=== PATIENT | male | born 1975 | race Caucasian/White ===

== ENCOUNTER 2018-10-22 00:28 | Inpatient (IN) | payer OTHER ==
[2018-10-22] VITALS (7 sets, daily range): BP systolic 111–135; BP diastolic 63–82
[~2018-10-22] VITALS: Ht 185.4 cm; Wt 101.2 kg
--- NOTE | ~2018-10-22 | HC ---
[facility] [address] [place] [address] CONSULTATION Name: TOSHIAEVA Oly Room #: 212-P [facility] IN ..#: [id number] Admission: 10/22/18 ������������������ Attend Phys: Juan Baumann Discharge: 10/23/18 ������������������ Date of : 73 Report #: [id number] THIS REPORT FOR: //name// CC: Aryan Baumann DATE OF SERVICE: 10/23/2018 SURGICAL CONSULTATION REASON FOR CONSULTATION: Acute cholecystitis. HISTORY OF PRESENT ILLNESS: The patient is a 43-year-old who was admitted last night through the Emergency Room with acute onset of epigastric pain. I received a call from Dr. Lira this morning that the patient was felt to have gallbladder disease rather than a heart condition. The patient complained of pain in the epigastrium that went through to his back about 9:00 last night. The patient ate about 8:30. The patient's pain continued, felt pretty nauseated, bloated. Did not vomit. The patient came to the Emergency Room. Did have a CT performed. The CT showed some thickening of the gallbladder. No PE, no aortic dissection. The patient did have a mild elevated troponin of 0.12. He had an echo, which was unremarkable. The patient underwent an ultrasound today, which showed multiple stones, wall thickening and somewhat decompressed gallbladder. The patient did say that about a few weeks ago, he had an episode of pain that lasted for about 30 minutes. There is family history of gallbladder disease in sister. PHYSICAL EXAMINATION: GENERAL: The patient is alert and oriented, not in acute distress. ABDOMEN: Soft, nondistended. Mildly tender in the right upper quadrant, but no guarding or rigidity. No mass. LABORATORY DATA: His white count is normal. Liver function is normal. CT and ultrasound was reviewed. Ultrasound was reviewed with Dr. Cortez who read the ultrasound consistent with acute cholecystitis. IMPRESSION: The patient is a 43-year-old with abdominal pain, which is fairly classic in location for gallbladder disease. He does have gallstones and his gallbladder does look inflamed on ultrasound. On exam, he is not as tender as I would expect, but mildly tender. I thought that perhaps, he has a subacute cholecystitis. The patient is recommended to undergo treatment with laparoscopic cholecystectomy. The patient has a trip coming up for his anniversary. He is leaving town next Friday. I am not sure at this point that he should go. This was discussed with the patient. The procedure was discussed, and risk of common duct injury, bleeding, infection was discussed. I [address] [address] CONSULTATION Name: TOSHIAEVA Room #: 212-P [facility] IN M.R.#: [id number] Admission: 10/22/18 ������������������ Attend Phys: Juan Baumann Discharge: 10/23/18 ������������������ Date of : 73 Report #: [id number] did tell him that we can see how he does postoperatively and if he is doing well, then there is a chance that he may be able to make the trip. Hypercoagulable period of time after surgery was discussed, possibly have him take some aspirin for his trip. ��������������������������������������������� ���������������������������������������� By: ��������������������������������������������� 1334 0130 Joseph Hull MD /nt
--- NOTE | ~2018-10-22 | O ---
[facility] [address] [place] [address] OPERATIVE REPORT Name: TOSHIAEVA Room #: 212-P [facility] IN M.R.#: [id number] Admission: 10/22/18 ������������������ Attend Phys: Juan Baumann Discharge: 10/23/18 ������������������ Date of : 73 Report #: [id number] THIS REPORT FOR: //name// CC: Aryan Baumann DATE OF SERVICE: 10/22/2018 PREOPERATIVE DIAGNOSES: Acute cholecystitis with cholelithiasis. POSTOPERATIVE DIAGNOSES: Acute cholecystitis with cholelithiasis. Large stone impacted in the gallbladder of neck. PROCEDURE: Laparoscopic cholecystectomy with cholangiogram. SURGEON: Joseph Hull M.D. ANESTHESIA: General anesthesia. COMPLICATIONS: None. ESTIMATED BLOOD LOSS: 30 mL. PROCEDURE NOTE: With the patient under anesthesia, IV antibiotic of Ancef 2 grams was given. Abdomen was prepped and draped in sterile fashion. Timeout was performed. A 0.25% Marcaine was used to anesthetize the skin infraumbilically. Curvilinear incision was made infraumbilically. Fascia was identified. The fascia just below the umbilicus was opened under visualization between clamps. 0 Vicryl suture was placed on the fascia for retraction. With the abdominal wall lifted anteriorly, Veress needle was then placed through the peritoneum. Abdominal cavity was insufflated with CO2. After creating pneumoperitoneum, a pressure of 15, 11 mm trocar was placed. This was placed into the pneumoperitoneum without difficulty. Laparoscopic evaluation showed a normal liver. The gallbladder is inflamed and intense. The colon did have increased gas and stool build up. Small bowel also was mild to moderately distended consistent with ileus. Two 5 mm trocars were placed in the right upper quadrant and another 5 mm trocar was placed in the right epigastrium. The gallbladder was decompressed with an aspirating needle. About 20 mL was drawn out of it. A grasper was placed on the fundus of the gallbladder. The gallbladder was lifted cephalad. There is some adhesion lateral to the gallbladder along the liver. This fatty adhesions probably chronic due to inflammation of the gallbladder. Adhesions were taken down. Proximal part of the gallbladder was identified. A large stone was palpated at the neck of the gallbladder. The gallbladder was also noted to be quite edematous. The fat that is just proximal to the neck of the gallbladder was dissected free. The [address] [address] OPERATIVE REPORT Name: EVA POPE Room #: 212-P [facility] IN ..#: [id number] Admission: 10/22/18 ������������������ Attend Phys: Juan Baumann Discharge: 10/23/18 ������������������ Date of : 73 Report #: [id number] cystic duct was isolated. The cystic duct was normal size. Clip was placed in junction of cystic duct to the gallbladder. An opening was made in the cystic duct. Cholangiogram catheter was inserted. Fluoroscopic cholangiogram was obtained. The cholangiogram catheter identified in the cystic duct. No harm to the common duct. There was a question of a filling defect in the common duct, but it did not move like a stone would. I believe this was probably representing overlapping gas. The bile duct filled out well and dye was seen to empty into the duodenum. The cystic duct was normal size. The patient has large gallstones. I do think the patient has a common duct stone. Dr. Arteaga also reviewed the cholangiogram with me and Dr. Arteaga called into the room and reviewed the cholangiogram with me. He did not believe that the patient had a stone in the duct either. The cholangiogram catheter was then removed. The proximal cystic duct was then clipped x 2 and then divided. The cystic artery was then found. Prior to finding the cystic artery, there were few twigs, strands of tissue that was clipped and divided. Either representing small vein or arterial branch, not the main artery. The main artery was then found. The artery was isolated right as it bifurcated. The artery was clipped x 2 proximally and 1 distally, then divided. The gallbladder was then divided from the liver bed. The wall of the gallbladder was quite edematous. Gallbladder was freed without difficulty. It was difficult to free the gallbladder with cautery because of the edema in the wall. The gallbladder, once it was freed, it was placed in a specimen bag. The bag was partially removed through the infraumbilical port. CO2 was then administered through one of the 5 mm trocar. The fascia opening was enlarged about another 4-5 mm. The part of the gallbladder was then able to be seen through to be outside of the wall. The gallbladder was then grasped. The gallbladder was opened, further decompressed. Clamps were placed on the gallbladder. An Allis clamp was then used to extract the stones. Once I removed part of the stone, the gallbladder then came out little by little. Then, the entire gallbladder within the bag came out. There was a large stone stuck in the gallbladder neck. The stones were pretty fragile and did break up. Liver bed was checked, hemostasis was excellent. Clips were intact. No bleeding was identified. Irrigation was performed. Irrigation was aspirated out. No bleeding was identified. CO2 was then released as much as possible. Trocars then removed. The fascia defect infraumbilically was then closed with [id number] 0 Vicryl x 2 and then a single interrupted 0 Vicryl. Skin was irrigated. Skin was closed with 5-0 PDS. Steri-Strip, Band-Aids applied. The patient tolerated the procedure well and was taken to the recovery room. ��������������������������������������������� ���������������������������������������� By: ��������������������������������������������� 1329 1707 Joseph Hull MD /nt
[2018-10-22 01:06] LABS: ABSOLUTE NEUTROPHILS 6.8 thou/uL (1.4-8.2); BASOPHILS 0.3 % (0.0-2.0); EOSINOPHILS 1.4 % (0.0-3.0); HEMATOCRIT 44.9 % (42.0-52.0); HEMOGLOBIN 15.2 gm/dL (14.0-18.0); LYMPHOCYTES 18.2 % (24.0-44.0); MCH 30.7 pg (26.0-34.0); MCHC 33.7 g/dL (28.0-37.0); MONOCYTES 6.7 % (1.0-8.0); PLATELET COUNT 238 thou/uL (150-400); POLYS 73.4 % (36.0-66.0); RBC 4.94 mil/uL (4.50-6.00); RDW 12.8 % (10.5-14.5); WBC 9.2 thou/uL (4.0-11.0)
[2018-10-22 01:10] LABS: CALCIUM 9.9 mg/dL (8.5-10.1); CREATININE 1.2 mg/dL (0.7-1.3); POTASSIUM 3.5 mmol/L (3.5-5.1)
[2018-10-22 01:16] LABS: ALBUMIN 4.5 g/dL (3.4-5.0); TOTAL BILIRUBIN 0.5 mg/dL (<0.1-1.0); TROPONIN-I 0.11 ng/mL (<0.06)
--- NOTE | 2018-10-22 07:10 | NUR ---
PT ARRIVED FROM ER AT 0515 THIS AM. VSS. PT A&OX4, FAMILY IN THE ROOM. ADMISSION ASSESSMENTS DONE AND ORDERS HAVE BEEN IMPLEMENTED. TELE STRIP DONE. PT STILL COMPLAINS OF MILD MID EPIGSTRIC PAIN. PT JUST COMPLAINED OF SOME NAUSEA, AROUND 0717, ZOFRAN ADMINISTERED, IV FLUIDS AND FAMOTIDINE GIVEN ORDERED. NO FURTHER COMPLAINTS OF DISTRESS, WILL CONTINUE TO MONITOR PER POC.
--- NOTE | 2018-10-22 08:03 | EKG ---
[address] [email or web address] [address] ELECTROCARDIOGRAM REPORT Name: EVA POPE Room #: 212-P ADM IN M.R.#: [id number] ������������������ Admission: 10/22/18 ������������������ Attend Phys: Juan Baumann Discharge: ������������������ Date of : 73 Report #: [id number] ����������������������������������������������������������������� [id number] THIS REPORT FOR: //name// [facility] ED Test Date: 2018-10-22 Test Time: 04:46:08 Pat Name: EVA POPE Department: Room: [facility] Gender: M Surgeon Assistant: LAURENCE : 1975 Requested By: Johnnie Topete Order Number: [id number] MD: Nehemiah Álvarez Measurements Intervals [place] Rate: 52 P: 19 SD: 173 QRS: 36 QRSD: 102 T: 12 QT: 463 QTc: 431 Interpretive Statements Sinus bradycardia Nonspecific T wave abnormality No previous ECG available for comparison Electronically Signed On 10-22-2018 8:02:48 CDT by Nehemiah Álvarez [email or web address] ��������������������������������������������� <ELECTRONICALLY SIGNED> ���������������������������������������� By: Nehemiah Álvarez MD, [facility] ��������������������������������������������� 10/22/18 [phone] 0446 Nehemiah Álvarez MD, FACC /EPI
[2018-10-22 08:33] LABS: CHOLESTEROL 166 mg/dL (<200); HDL CHOLESTEROL 61 mg/dL (>40); LDL CHOLESTEROL 99 mg/dL (<100); TC:HDL 2.7 Ratio (Not establshd); TRIGLYCERIDE 32 mg/dL (<150); VLDL 6 mg/dL (<40)
--- NOTE | 2018-10-22 11:15 | 2DMMODE ---
[facility] [address] [place] [address] 2 D/M-MODE ECHOCARDIOGRAM Name: EVA POPE Room #: 212-P ADM IN M.R.#: [id number] ������������� Admission: 10/22/18 ������������� Attend Phys: Juan Can Discharge: ��� ������������� ��� Date of : 73 Date of Service: 10/22/18 1115 �� Report #: [id number] �������� ��������������������������������������������[id number] THIS REPORT FOR: //name// APPROVED REPORT Study performed: 10/22/2018 09:57:27 EXAM: Comprehensive 2D, Doppler, and color-flow Echocardiogram Patient Location: Bedside Room #: 212 Status: routine BSA: 2.25 HR: 49 bpm BP: 131/80 mmHg Rhythm: Bradycardia Other Information Study Quality: Good Indications Chest Pain 2D Dimensions RVDd: 37.77 mm IVSd: 10.80 (7-11mm) LVOT Diam: 23.82 (18-24mm) LVDd: 53.13 mm PWd: 10.65 (7-11mm) Ascending Ao: 30.31 (22-36mm) LVDs: 34.82 (25-40mm) Aortic Root: 38.93 mm IVC: 16.00 mm Volumes Left Atrial Volume (Systole) Single Plane 4CH: 71.00 mL Single Plane 2CH: 37.73 mL LA ESV Index: 26.00 mL/m2 Aortic Valve AoV Peak Donell.: 1.75 m/s AO Peak Gr.: 12.30 mmHg LVOT Max P.67 mmHg LVOT Max V: 1.29 m/s JUAN Vmax: 3.28 cm2 Mitral Valve E/A Ratio: 1.1 MV Decel. Time: 196.34 ms MV E Max Donell.: 0.80 m/s [facility] [address] [place] [address] 2 D/M-MODE ECHOCARDIOGRAM Name: EVA POPE Oly Room #: 212-P [facility].#: [id number] ������������� Admission: 10/22/18 ������������� Attend Phys: Juan Can Discharge: ��� ������������� ��� Date of : 73 Date of Service: 10/22/18 1115 �� Report #: [id number] �������� ��������������������������������������������[id number] MV A Donell.: 0.76 m/s MV PHT: 56.94 ms IVRT: 83.04 ms Pulmonary Valve PV Peak Donell.: 1.01 m/s PV Peak Gr.: 4.08 mmHg Pulmonary Vein P Vein S: 0.89 m/s P Vein A: 0.36 m/s P Vein D: 0.59 m/s P Vein A Dur.: 115.3 msec P Vein S/D Ratio: 1.51 Left Ventricle The left ventricle is normal size. There is normal LV segmental wall motion. There is normal left ventricular wall thickness. Left ventricular systolic function is normal. The left ventricular ejection fraction is within the normal range. LVEF is 55-60%. The left ventricular diastolic function is normal. Right Ventricle The right ventricle is normal size. The right ventricular systolic function is normal. Atria The left atrium size is normal. The right atrium size is normal. Aortic Valve The aortic valve is normal in structure. No aortic regurgitation is present. There is no aortic valvular stenosis. Mitral Valve The mitral valve is normal in structure. There is no mitral valve regurgitation noted. No evidence of mitral valve stenosis. Tricuspid Valve The tricuspid valve is normal in structure. There is no tricuspid valve regurgitation noted. Pulmonic Valve The pulmonary valve is normal in structure. There is no pulmonic valvular regurgitation. Great Vessels The aortic root is normal in size. IVC is normal in size and collapses >50% with inspiration. [address] [address] 2 D/M-MODE ECHOCARDIOGRAM Name: TOSHIAEVA Room #: 212-P [facility] IN .R.#: [id number] ������������� Admission: 10/22/18 ������������� Attend Phys: Juan Can Discharge: ��� ������������� ��� Date of : 73 Date of Service: 10/22/18 1115 �� Report #: [id number] �������� ��������������������������������������������[id number] Pericardium There is no pericardial effusion. <Conclusion> The left ventricle is normal size. LVEF is 55-60%. The left ventricular diastolic function is normal. The right ventricle is normal size. The left atrium size is normal. The aortic valve is normal in structure. The mitral valve is normal in structure. The tricuspid valve is normal in structure. The aortic root is normal in size. There is no pericardial effusion. ��������������������������������������������� <ELECTRONICALLY SIGNED> ���������������������������������������� By: Otoniel Lira MD, FACC ��������������������������������������������� 10/22/18 1115 1115 111 Otoniel Lira MD, FACC /INF
--- NOTE | 2018-10-22 15:10 | NUR ---
Chart reviewed and case discussed with the care team. No cm interventions indicated. Pt is indep and lives with his spouse. He has commerical insurance in place and a PCP for followup care. Will remain available should dc needs arise.
--- NOTE | 2018-10-22 18:17 | NUR ---
ASSUMED CARE OF PATIENT AT 0700. PATIENT IS A&O X 4. PATIENT HAS MULTIPLE FAMILY MEMBERS AT THE BEDSIDE, INCLUDING HIS . PATIENT DENIES ANY PAIN AT SHIFT CHANGE BUT HAS INCREASED NAUSEA. NAUSEA TEMPORARILY RELIEVED WITH ZOFRAN. PATIENT EVENTUALLY COMPLAINED OF MIDEPIGASTRIC PAIN AND MORPHINE WAS GIVEN ORDERED BY DR. HOROWITZ. PATIENT SEEN BY DR. MUNGUIA WHO ORDERED AN ULTRASOUND AND THEN CONSULTED GENERAL SURGERY, DR. WALSH. PATIENT WAS TAKEN FOR SURGERY AT 1400 FOR A LAP KRISTIN AND STILL IN SURGERY AREA AT SHIFT CHANGE TO EVENING SHIFT. REPORT WILL BE GIVEN TO NIGHT NURSE FOR RETURN OF PATIENT DURING AIR TRAFFIC CONTROL MANAGER TO THE UNIT.
[2018-10-23 00:11] VITALS: BP 114/54; BP 125/75
[2018-10-23 03:44] LABS: CALCIUM 8.4 mg/dL (8.5-10.1); CREATININE 0.9 mg/dL (0.7-1.3); POTASSIUM 4.2 mmol/L (3.5-5.1)
[2018-10-23 04:45] VITALS: BP 133/86
--- NOTE | 2018-10-23 05:48 | NUR ---
ASSUME CARE 1900. PT/VITALS STABLE. INTERMITTENT MILD PAIN NOTED. TOLERATES ACTIVITY WELL. ASSESSMENT CHARTED. PROGRESSING WELL WITH POC. ABDO LAP SITES X 4/CDI. PLAN IS TO CONTINUE TO MONITOR PATIENT FOR INFCETION AND ABNORMAL LABS. POSSIBLE DISCHARGE HOME TODAY. WILL CONTINUE TO MONITOR AND FOLLOW WITH POC
--- NOTE | 2018-10-23 07:48 | EKG ---
[address] [place] [address] ELECTROCARDIOGRAM REPORT Name: EVA POPE Room #: 212-P ADM IN M.R.#: [id number] ������������������ Admission: 10/22/18 ������������������ Attend Phys: Juan Baumann Discharge: ������������������ Date of : 73 Report #: [id number] ����������������������������������������������������������������� [id number] THIS REPORT FOR: //name// [facility] ED Test Date: 2018-10-22 Test Time: 01:04:44 Pat Name: EVA POPE Department: Room: [facility] Gender: M Air Quality Manager: LAURENCE : 1975 Requested By: Johnnie Topete Order Number: [id number] MD: Nehemiah Álvarez Measurements Intervals [place] Rate: 50 P: 25 [place]: 168 QRS: 31 QRSD: 110 T: 17 QT: 438 QTc: 400 Interpretive Statements Sinus bradycardia Borderline T wave abnormalities No previous ECG available for comparison Electronically Signed On 10-23-2018 7:48:26 CDT by Nehemiah Álvarez [email or web address] ��������������������������������������������� <ELECTRONICALLY SIGNED> ���������������������������������������� By: Nehemiah Álvarez MD, [facility] ��������������������������������������������� 10/23/18 0748 0104 0104 Nehemiah Álvarez MD, FACC /EPI
[2018-10-23] MEDS ORDERED: HYDROCODON-ACE1 EAC7 PO (08:53)
[2018-10-23 09:28] VITALS: BP 115/67
[2018-10-23 11:27] VITALS: BP 115/67
[2018-10-23 11:46] VITALS: BP 106/68
--- NOTE | 2018-10-23 12:59 | NUR ---
PT CARE ASSUMED APPROX 0700. PT ALERT AND ORIENTED X4. DENIES SOA. ABD PAIN 10/10 THIS AM, 2/10 THIS AFTERNOON. PAIN MANAGED WITH FENT AND HYDROCODONE. PT REPORTS RELIEF. PT DISCHARGING AT THIS TIME. DISCHARGE INSTRUCTIONS GIVEN BY DR WALSH WITH NURSE AND SPOUSE AT BEDSIDE. PAPERWORK REVIEWED WITH REINFORCEMENT OF DR WALSH'S INSTRUCTIONS ALONG WITH F/U APPT INFO, DISCHARGE MED AND SCRIPT, DIET, ACTIVITY, LAP SITE CARE AND GENERAL POST HOSPITAL CARE. BOTH SPOUSE AND PT DENY QUESTIONS OR CONCERNS WITH ANY INFO GIVEN OR REVIEWED. IV OUT, TELE OFF. HOSPITAL STAFF TO ESCORT PT OUT TIMELY.
--- NOTE | 2018-10-27 14:44 | PATH ---
[facility] [address] [place] [address] PATHOLOGY RPT PROCEDURE Name: EVA CORDOVA Room #: 212-P [facility] IN .R.#: [id number] ������������������ Admission: 10/22/18 ������������������ Date of : 73 Discharge: 10/23/18 Report #: [id number] Path Case #: [id number] [facility] Accession Number: [id number] . 01 Material submitted: . GALLBLADDER . 01 Clinical history: . Nstemi, acute cholecystitis with cholelithiasis . 02 Diagnosis: Gallbladder, cholecystectomy: - Moderate chronic cholecystitis. - Cholelithiasis. (IUV:clyde; 10/26/2018) QMS/10/26/2018 . 02 Electronically signed: . Kay Morfin MD, Pathologist NPI- [id number] . 01 Gross description: . The specimen is received in formalin, labeled "Eva Cordova, gallbladder" and consists of a previously opened pink-cook and hemorrhagic gallbladder measuring 10.0 cm in length and approximately 3.8 cm in diameter upon reapproximation. The margin is inked black. Resident in the container are multiple fractured and multifaceted brown-yellow calculi measuring 6.3 x 4.8 x 1.0 cm in aggregate. The mucosa is cook-brown, granular, hemorrhagic with moreno-cook streaks and an edematous and fibrous wall ranging from 0.1-0.7 cm. No polyps or mass lesions are identified. Dental Hygiene Teacher sections are submitted in A1-A2. (SDY; 10/23/2018) SYU/SYU . 02 Microscopic: . . . 02 Pathologist provided ICD-10: K80.10 . 02 CPT . 636046 Specimen Comment: A courtesy copy of this report has been sent to Specimen Comment: [phone], , , . Specimen Comment: Report sent to ,DR HOROWITZ,DR MIRAMONTES / DR OTTO Specimen Comment: A duplicate report has been generated due to demographic updates. [address] [address] PATHOLOGY RPT PROCEDURE Name: EVA CORDOVA W Room #: 212-P [facility] IN M.R.#: [id number] ������������������ Admission: 10/22/18 ������������������ Date of : 73 Discharge: 10/23/18 Report #: [id number] Path Case #: [id number] Performed at: [facility] [place] [address] [place] [address] [address], [place], [place] [id number] MD Gary Gonzalez MD Phone: [phone] Performed at: [address] [id number] MD Kay Morfin MD Phone: [phone]
== END 2018-10-23 13:15 | disposition home or self-care (01) | DRG 419 ==
LOC: ER 00:28 → 2N 03:58 → EROBS 03:58 → 2N 05:09 → ENTRNSPT 10-23 13:04 → EDTRNSPTSTS 10-23 13:06 → 2N 10-23 13:15
PROVIDERS: Emergency Medicine; Nurse Practitioner Adult Health; Surgery; ADMIT Hospitalist
PROC: 0FT44ZZ Resection of Gallbladder, Percutaneous Endoscopic Approach (ICD-10-PCS; principal; 2018-10-22)
PROC: BF121ZZ Fluoroscopy of Gallbladder using Low Osmolar Contrast (ICD-10-PCS; principal; 2018-10-22)
DX: K80.00 Calculus of gallbladder with acute cholecystitis without obstruction (principal); Z88.6 Allergy status to analgesic agent; Z79.82 Long term (current) use of aspirin; Z79.899 Other long term (current) drug therapy; Z82.49 Family history of ischemic heart disease and other diseases of the circulatory system; Z83.3 Family history of diabetes mellitus; Z23 Encounter for immunization
CPT/HCPCS: 10081; 50010; 50101; 50411; 50555; 50558; 51489; 53307; 53310; 55245; 55317; 56462; 56525; 56526; 62110; 62900; 70005